=== PATIENT | female | born 1985 | race Caucasian/White ===

== ENCOUNTER → 2021-03-20 13:34 | Outpatient (CLI) | payer OTHER, SELFPAY ==
[2021-03-20 13:57] LABS: Basophils # 0.1 K/mm3 (0-0.2); Basophils % 0.4 % (0.1-2.0); Eosinophils # 0.3 K/mm3 (0.0-0.4); Eosinophils % 2.6 % (0.1-12.0); Hematocrit 45.6 % (37.0-47.0); Hemoglobin 14.8 g/dL (12.2-16.2); Lymphocytes # 3.3 K/mm3 (0.7-4.5); Lymphocytes % 27.4 % (10-50); Mean Corpuscular HGB Conc 32.4 g/dL (31.8-35.4); Mean Corpuscular Hemoglobin 29.9 pg (27.0-31.2); Mean Corpuscular Volume 92.2 fl (81-99); Mean Platelet Volume 8.3 fl (7.4-10.4); Monocytes # 0.7 K/mm3 (0.1-1.0); Monocytes % 5.4 % (1.7-9.3); Neutrophils # 7.8 K/mm3 (1.8-7.8); Neutrophils % 64.3 % (37.0-80.0); Platelet Count 342 K/mm3 (142-424); Red Blood Count 4.94 M/mm3 (4.20-5.40); Red Cell Distribution Width 12.8 % (11.5-17.5); White Blood Count 12.2 K/mm3 (4.8-10.8)
[2021-03-20 13:59] LABS: Alanine Aminotransferase 14 U/L (12-78); Albumin Level 5.1 g/dl (3.5-5.0); Albumin/Globulin Ratio 1.6 (1.1-1.8); Alkaline Phosphatase 75 U/L (38-126); Anion Gap 13.8 mEq/L (5-15); Aspartate Amino Transferase 21 U/L (14-36); Bilirubin,Total 0.4 mg/dl (0.2-1.3); Blood Urea Nitrogen 6 mg/dl (7-17); Calcium 10.5 mg/dl (8.4-10.2); Carbon Dioxide 25 mmol/L (22.0-30.0); Chloride 107 mmol/L (98-107); Chol/HDL Ratio 5.2 (1-3.5); Cholesterol 243 mg/dl (140-200); Estimated Glomerular Filt Rate 114 ml/min (>60); GFR (African American) 138 ML/MIN (>60); Globulin 3.1 g/dL (1.3-3.2); Glucose 63 mg/dl (74-100); HDL Cholesterol 47 mg/dl (40-60); Iron 85 ug/dL (37-170); Potassium 3.8 mmoL/L (3.5-5.1); Sodium 142 mmol/L (136-145); Total Protein,Serum 8.2 g/dl (6.3-8.2); Triglycerides 90 mg/dl (30-150); VLDL Cholesterol 18 mg/dL (0-40)
[2021-03-20 14:16] LABS: 25-OH Vitamin D, Total 19.6 ng/mL (30-100)
[2021-03-20 14:17] LABS: T4 (Thyroxine) 9.9 ug/dl (5.53-11.0)
[2021-03-20 14:30] LABS: Thyroid Stimulating Hormone 1.22 uIU/mL (0.465-4.68)
[2021-03-20 14:50] LABS: Vitamin B12 492 pg/mL (239-931)
== END ==
PROVIDERS: Visit Provider Family Medicine
DX: L65.9 Nonscarring hair loss, unspecified (principal); E55.9 Vitamin D deficiency, unspecified; Z79.899 Other long term (current) drug therapy; R53.83 Other fatigue
CPT/HCPCS: 80053; 80061; 82306; 82607; 83540; 84436; 84443; 85025

== ENCOUNTER → 2021-04-03 10:39 | Outpatient (CLI) | payer OTHER, SELFPAY ==
--- NOTE | 2021-04-03 10:48 | XR_ITS ---
PROCEDURE: XR CERVICAL SPINE 3V CLINICAL INDICATION: Back Pain Neck stiffness COMPARISON: No exams were available for comparison FINDINGS: Normal Alignment No fracture or dislocation. No lytic or blastic change. No significant degenerative change. The disc spaces are preserved. No evidence of cervical rib. IMPRESSION: Negative cervical spine Dictated by: Channing Monroe MD 04/03/2021 11:48 Channing Monroe MD in [place] 04/03/2021 11:48
--- NOTE | 2021-04-03 10:48 | XR_ITS ---
PROCEDURE: XR LUMBAR SPINE 2-3V CLINICAL INDICATION: Back Pain COMPARISON: No exams were available for comparison FINDINGS: There is normal alignment. No acute fracture or dislocation is evident. The disc spaces are well preserved. There is anterior angulation of the coccyx which could be developmental or posttraumatic. Bilateral tubal ligation clips are present. No lytic or blastic changes. IMPRESSION: Negative lumbar spine. Anterior angulation of the coccyx. Dictated by: Channing Monroe MD 04/03/2021 11:47 Channing Monroe MD in [place] 04/03/2021 11:47
== END ==
PROVIDERS: PCP Family Medicine; Visit Provider Family Medicine
DX: M41.9 Scoliosis, unspecified (principal)
CPT/HCPCS: 72040; 72100

== ENCOUNTER → 2022-03-01 08:50 | Outpatient (CLI) | payer OTHER, SELFPAY ==
[2022-03-01 17:35] LABS: MANUAL DIFFERENTIAL MANUAL DIFFERENTIAL (MANUAL DIFF)
[2022-03-01 17:43] LABS: Basophils # 0.1 K/mm3 (0-0.2); Basophils % 1.2 % (0.1-2.0); Eosinophils # 0.4 K/mm3 (0.0-0.4); Eosinophils % 4.8 % (0.1-12.0); Hematocrit 39.4 % (37.0-47.0); Hemoglobin 12.9 g/dL (12.2-16.2); Lymphocytes # 2.6 K/mm3 (0.7-4.5); Lymphocytes % 35.5 % (10-50); Mean Corpuscular HGB Conc 32.7 g/dL (31.8-35.4); Mean Corpuscular Hemoglobin 30.3 pg (27.0-31.2); Mean Corpuscular Volume 92.8 fl (81-99); Mean Platelet Volume 8.7 fl (7.4-10.4); Monocytes # 0.4 K/mm3 (0.1-1.0); Monocytes % 5.2 % (1.7-9.3); Neutrophils # 3.9 K/mm3 (1.8-7.8); Neutrophils % 53.4 % (37.0-80.0); Platelet Count 403 K/mm3 (142-424); Red Blood Count 4.24 M/mm3 (4.20-5.40); Red Cell Distribution Width 13.6 % (11.5-17.5); White Blood Count 7.2 K/mm3 (4.8-10.8)
[2022-03-01 18:25] LABS: Eosinophils % 1 % (0-3); Hypochromasia 1+; Lymphocytes % 22 % (10-50); Monocytes % 15 % (2-9); Neutrophils % 62 % (42-76); Platelet Estimate Normal; Total Cells Counted 100
== END ==
PROVIDERS: PCP Family Medicine; Visit Provider Family Medicine
DX: R23.8 Other skin changes (principal)
CPT/HCPCS: 85007; 85014; 85018; 85048; 85049

== ENCOUNTER → 2023-08-06 14:36 | Outpatient (CLI) | payer OTHER, SELFPAY ==
--- NOTE | 2023-08-06 14:37 | US_ITS ---
FINAL REPORT TECHNIQUE: Sonographic images of the thyroid gland were obtained in the longitudinal and transverse planes. CLINICAL HISTORY: thyroid enlargement COMPARISON: None FINDINGS: The right lobe measures 5.4 x 2 x 2.3 cm. The right lobe is homogeneous. There are 2 nodules in the right lobe of the thyroid gland. The upper nodule is a 7 mm nodule, hypoechoic, a TI-RADS category 4 nodule. The lower pole nodule is a 6 mm nodule, hypoechoic, a TI-RADS category 4 nodule. The left lobe measures 5.2 x 1.6 x 2 cm. The left lobe is homogeneous. There are no cystic or solid nodules. The isthmus measures 2.3 mm. This is normal. IMPRESSION: 2 TIRADS category 4 nodules in the right lobe. Based on size, there are no current recommendations regarding follow up. Thyromegaly. Reviewed, Interpreted and Dictated by Kristy Abreu MD Transcribed by Roseanna Byrne Authenticated and [facility]
== END ==
PROVIDERS: PCP Family Medicine; Visit Provider Nurse Practitioner
DX: E04.9 Nontoxic goiter, unspecified (principal)
CPT/HCPCS: 76536

== ENCOUNTER → 2023-08-18 09:53 | Outpatient (CLI) | payer OTHER, SELFPAY ==
[2023-08-18 19:40] LABS: Free T4 (Free Thyroxine) 1.42 ng/dl (0.78-2.19)
[2023-08-18 19:54] LABS: Thyroid Stimulating Hormone 0.42 uIU/mL (0.465-4.68)
[2023-08-20 13:20] LABS: Thyroid Peroxidase Antibodies <9 IU/mL (0-34)
== END ==
PROVIDERS: PCP Family Medicine; Visit Provider Family Medicine
DX: E04.1 Nontoxic single thyroid nodule (principal)
CPT/HCPCS: 84439; 84443; 86376

== ENCOUNTER 2023-11-13 15:52 | Outpatient (CLI) | payer OTHER, SELFPAY ==
[2023-11-13 18:48] LABS: Influenza A, PCR Not Detected (NotDetected); Influenza B, PCR Not Detected (NotDetected)
[2023-11-13 20:24] LABS: Coronavirus 19, PCR Detected (NotDetected)
== END 2023-11-13 23:59 ==
LOC: LAB.DROPOF 11-14 11:09
PROVIDERS: PCP Nurse Practitioner; Visit Provider Nurse Practitioner
DX: J06.9 Acute upper respiratory infection, unspecified (principal); U07.1 COVID-19
CPT/HCPCS: 87636

== ENCOUNTER → 2023-11-26 13:09 | Outpatient (POV) | payer OTHER, SELFPAY ==
--- NOTE | 2023-11-26 13:24 | EXP.PAIN.OV ---
HPI Data of Consult Patient: new to practice Consult date: 11/26/23 Requesting Physician: Shraddha Loyola APRN Primary Care Provider: Tuan Hernández MD Consult Narrative History of present illness: Ms. Sandhu is a 38 year old female who presents today as a new patient. She is a referral from [facility]. Today she rates her pain an 8 out of 10. Patient states her pain is all in and around her bilateral jaws and ears. Patient states this is been going on since last year around April. Patient states it is a popping and pressure sensation that is worse with talking or chewing or even opening her mouth. Patient has tried [id number] Tylenol and ibuprofen along with heat and ice with minimal relief. Patient has been seen by ENT and checked out her hearing with no acute findings. Patient is interested in any help we may be able to provide. Patient is currently managed with alprazolam 1 mg daily from her PCP. Her Sharif has been reviewed and is appropriate. CC: Shraddha Loyola APRN [facility] Disclaimer: The information contained in this section may have been updated after the patient was seen, as this information can be updated by other users. Medical History (Updated 11/26/23 @ 13:58 by Shraddha Loyola APRN) Goiter Hoarseness Low back pain Migraine Thyroid enlargement Thyroid nodule TMJ (dislocation of temporomandibular joint) Social History Smoking Status: Current every day smoker alcohol intake: never substance use type: denies use current occupational status: unemployed and disabled Travel in the last 8 weeks: None household members: significant other housing: house Review of Systems Review of Systems Review of systems:: pertinent systems reviewed and negative unless documented below Review of systems (narrative): Review of Systems: General: No recent weight changes, no fever, no sleep disturbances Respiratory: No cough, no shortness of air, no recurring pulmonary infections Cardiovascular/peripheral vascular: No chest pain, no palpitations, no edema, no shortness of breath Gastrointestinal: No new onset incontinence, normal bowel movements reported Genitourinary: No new onset incontinence Musculoskeletal: Bilateral ear/jaw pain/popping, TMJ dysfunction Psychiatric: [Normal mood/affect] Neurological: [Denies weakness in extremities], [denies balance issues] Meds Home Medications and Allergies Home Medications Medication Instructions Recorded Confirmed Type albuterol sulfate 90 mcg/actuation 2 puff inhalation QID PRN 04/04/23 11/17/23 Rx aerosol inhaler shortness of breath or wheezing #8.5 grams fluticasone propionate 50 1 spray intranasal DAILY #16 grams 07/29/23 11/17/23 Rx mcg/actuation nasal spray,suspension topiramate 25 mg tablet (Topamax) See Rx Instructions .Route 08/18/23 11/17/23 Rx .COMPLEX #60 tabs ubrogepant 100 mg tablet (Ubrelvy) 100 mg PO ONCE PRN migraine 08/18/23 11/17/23 Rx headache #10 tabs omeprazole 40 mg capsule,delayed 40 mg PO DAILY #30 caps 09/03/23 11/17/23 Rx release buspirone 15 mg tablet See Rx Instructions .Route 09/25/23 11/17/23 Rx .COMPLEX #90 tabs quetiapine 25 mg tablet See Rx Instructions .Route 09/25/23 11/17/23 Rx .COMPLEX #60 tabs Imitrex 20 mg/actuation nasal See Rx Instructions .Route 10/15/23 11/17/23 Rx spray (sumatriptan) .COMPLEX #6 ea diclofenac sodium 75 mg See Rx Instructions .Route 10/24/23 11/17/23 Rx tablet,delayed release .COMPLEX #60 tabs alprazolam 1 mg tablet 1 mg PO HS PRN anxiety #30 tabs 10/27/23 11/17/23 Rx ugfopmsasxlhmcq-rjkgmoibdmcpjrj-AO 5 ml PO Q4-6H PRN cold symptoms 11/13/23 11/13/23 Rx 2 mg-30 mg-10 mg/5 mL oral syrup #240 mL (Bromfed DM) cefdinir 300 mg capsule 300 mg PO BID #20 caps 11/13/23 11/13/23 Rx cetirizine 10 mg tablet 10 mg PO DAILY #30 tabs 11/13/23 11/13/23 Rx fluconazole 150 mg tablet 150 mg PO WEEKLY #2 tabs 11/13/23 11/13/23 Rx methylprednisolone 4 mg tablets in See Rx Instructions PO PER PKG DIR 11/13/23 11/13/23 Rx a dose pack #21 tabs montelukast 10 mg tablet 10 mg PO DAILY #30 tabs 11/13/23 11/13/23 Rx moxifloxacin 0.5 % eye drops 1 drp ophthalmic (eye) TID 7 days 11/13/23 11/13/23 Rx #3 mL nystatin 100,000 unit/mL oral 4 ml PO QID 10 days #160 mL 11/13/23 11/13/23 Rx suspension molnupiravir 200 mg capsule (EUA) 800 mg PO Q12H 5 days #40 caps 11/14/23 11/14/23 Rx (Lagevrio) New Prescriptions to Start Prescriptions: Allergies Allergy/AdvReac Type Severity Reaction Status Date / Time hydrocodone AdvReac Unknown Verified 11/17/23 09:09 morphine AdvReac Unknown Verified 11/17/23 09:09 sulfamethoxazole AdvReac Verified 11/17/23 09:09 [From Bactrim] trimethoprim [From Bactrim] AdvReac Verified 11/17/23 09:09 Objective Narrative: Physical Exam: General: Alert and oriented x3, no acute distress, pleasant and cooperative Lungs: Respirations even and unlabored, symmetrical chest expansion Eyes: PERRL Musculoskeletal: Flexion and extension of lumbar [spine] within normal limits Neurological: Speech clear, no gross sensory deficit Assessment and Plan *Assessment and plan (1) TMJ dysfunction: Status: Acute Category: Medical Code(s): M26.609 - Unspecified temporomandibular joint disorder, unspecified side (2) Jaw pain: Status: Acute Category: Medical Code(s): R68.84 - Jaw pain (3) Ear pain: Status: Acute Qualifiers: Laterality: bilateral Qualified Code(s): H92.03 - Otalgia, bilateral Category: Medical Code(s): H92.09 - Otalgia, unspecified ear Plan Patient is experiencing worsening pain in and around her bilateral jaws and ears related to TMJ dysfunction. Patient has seen ENT specialist with no acute findings. I have discussed with the patient that she may benefit from TMJ joint injections. Risk and benefits were discussed with the patient and she would like to proceed forward with this plan of care. Patient will be scheduled for bilateral TMJ joint injections. Patient has been instructed to contact the clinic with any concerns before the next appointment. Dr. Sanchez has reviewed this note and agrees with this plan of care. This note was dictated using voice recognition software and make contain errors or omissions.
[2023-11-26 14:11] VITALS: BP 137/83; PULSE 78; RESP 18; O2SAT 100
== END ==
LOC: SC.PAIN 13:10
PROVIDERS: PCP Family Medicine; Visit Provider Nurse Practitioner Family
DX: M26.603 Bilateral temporomandibular joint disorder, unspecified (principal); R68.84 Jaw pain; H92.03 Otalgia, bilateral
CPT/HCPCS: 99202; G0463

== ENCOUNTER 2023-12-19 09:50 | Day surgery (SDC) | payer OTHER, SELFPAY ==
[2023-12-19 10:09] VITALS: BP 137/84; PULSE 83; RESP 18; O2SAT 100; BMI 19.8
[2023-12-19] MEDS: methylPREDNISolone ACETATE 80MG/ML VIAL 80 MG (11:05)
[2023-12-19] MEDS: LIDOCAINE 1% 5ML PF VIAL 5 ML (11:05)
[2023-12-19 11:06] VITALS: BP 111/71; PULSE 75; RESP 18; O2SAT 98
[2023-12-19 11:15] VITALS: BP 115/82; PULSE 66; RESP 18; O2SAT 100
--- NOTE | 2023-12-19 14:09 | P.PCN_ITS ---
Procedure Date: 12/19/23 Time: 14:10 Anesthesiologist:: Latrell Sanchez MD Complications:: None Pre-procedure Diagnosis:: Temporomandibular joint dysfunction with bilateral jaw pain Post-procedure Diagnosis:: Same Indications for Procedure:: This patient is a pleasant 38-year-old white female who is now developed bilateral temporomandibular joint dysfunction with bilateral jaw pain. This was discovered by her ENT. She wears dentures so she does not grind her teeth at night. However upon chewing she does have increasing pain on both sides left greater than right. We will do bilateral temporomandibular joint injections today to see if this will help with her pain symptoms. Procedure Details:: Bilateral temporomandibular joint injection Informed consent was obtained risk and benefits of the procedure were explained to the patient. Patient was taken the procedure room. The area anterior to the tragus was prepped using alcohol preps. A 25-gauge needle was inserted on each side into the temporomandibular joint. We injected 3 mL lidocaine 1% and Depo- Medrol 40 mg into each temporomandibular joint. Patient tolerated procedure well with no complications. Plan and Disposition:: Will follow-up with this patient in 2 weeks. Will reevaluate symptoms at that time
== END 2023-12-19 11:15 | disposition home or self-care (01) ==
LOC: SC.PAINP 09:50
PROVIDERS: PCP Family Medicine; Visit Provider Anesthesiology
DX: M26.603 Bilateral temporomandibular joint disorder, unspecified (principal); R68.84 Jaw pain
CPT/HCPCS: 20605; J1040

== ENCOUNTER → 2024-01-02 08:54 | Outpatient (POV) | payer OTHER, SELFPAY ==
[2024-01-02 09:20] VITALS: BP 100/64; PULSE 71; RESP 18; O2SAT 99; BMI 20.9
--- NOTE | 2024-01-02 09:29 | EXP.PAIN.SOA ---
[facility] Pain Management SOAP Note Subjective:: Patient is a pleasant 38-year-old female who presents today for follow-up of TMJ joint injection bilaterally on 12/19/2023. Currently treating the patient for TMJ dysfunction. Today she rates her pain a 6 out of 10. Patient denies any new trauma or injury. She states that she did have 100% relief following this injection and during that time was able to increase her activity with decreased overall pain and was more functional. Patient does state that after the 2 days it did slowly start to come back with the ear popping and pressure sensations that did eventually go more into and around her jaw. Today she states she is back at her baseline. Patient states the pain is very bothersome with an aching sensation that does affect her ability to perform activities of daily living such as cooking and cleaning. Patient states the pain is fairly constant. Patient is interested in repeating her prior injections. Patient is managed with alprazolam 1 mg daily from her PCP. Her Sharif has been reviewed and is appropriate. Review of Systems: General: No recent weight changes, no fever, no sleep disturbances Respiratory: No cough, no shortness of air, no recurring pulmonary infections Cardiovascular/peripheral vascular: No chest pain, no palpitations, no edema, no shortness of breath Gastrointestinal: No new onset incontinence, normal bowel movements reported Genitourinary: No new onset incontinence Musculoskeletal: Bilateral ear pain/jaw pain/TMJ dysfunction Psychiatric: [Normal mood/affect] Neurological: [Denies weakness in extremities], [denies balance issues] Objective:: Physical Exam: General: Alert and oriented x3, no acute distress, pleasant and cooperative Lungs: Respirations even and unlabored, symmetrical chest expansion Eyes: PERRL Musculoskeletal: Flexion and extension of lumbar spine within normal limits Neurological: Speech clear, no gross sensory deficit Assessment:: TMJ joint dysfunction with bilateral lateral jaw pain Plan:: Patient had 100% improvement with her last TMJ joint injection. Patient is back to having worsening pain, pressure and popping sensations at today's visit. I have discussed with patient that she may benefit from repeat TMJ joint injection. Risk and benefits were discussed with the patient and she would like to proceed forward with this plan of care. We will schedule the patient for bilateral TMJ joint injections. Patient has been instructed to contact the clinic with any concerns before the next appointment. Dr. Sanchez has reviewed this note and agrees with this plan of care. This note was dictated using voice recognition software and make contain errors or omissions. [facility] Disclaimer: The information contained in this section may have been updated after the patient was seen, as this information can be updated by other users. Medical History Goiter Hoarseness Low back pain Migraine Thyroid enlargement Thyroid nodule TMJ (dislocation of temporomandibular joint) Family History Other Unknown family medical history Social History Smoking Status: Current every day smoker alcohol intake: never substance use type: denies use current occupational status: employed Travel in the last 8 weeks: None household members: significant other housing: house
== END ==
LOC: SC.PAIN 08:55
PROVIDERS: PCP Family Medicine; Visit Provider Nurse Practitioner Family
DX: M26.603 Bilateral temporomandibular joint disorder, unspecified (principal); R68.84 Jaw pain
CPT/HCPCS: 99212; G0463

== ENCOUNTER 2024-01-16 13:41 | Day surgery (SDC) | payer OTHER, SELFPAY ==
[2024-01-16 13:58] VITALS: BP 108/70; PULSE 92; RESP 20; O2SAT 100; BMI 20.2
[2024-01-16 14:13] VITALS: BP 111/74; PULSE 81; RESP 18; O2SAT 97
[2024-01-16] MEDS: LIDOCAINE 1% 5ML PF VIAL 10 ML (14:13)
[2024-01-16 14:17] VITALS: BP 111/74; PULSE 81; RESP 18; O2SAT 97
[2024-01-16 14:25] VITALS: BP 109/66; PULSE 81; RESP 20
--- NOTE | 2024-01-16 15:11 | P.PCN_ITS ---
Procedure Date: 01/16/24 Time: 15:11 Anesthesiologist:: Latrell Sanchez MD Complications:: None Pre-procedure Diagnosis:: Temporomandibular joint dysfunction Post-procedure Diagnosis:: same Indications for Procedure:: Patient is a pleasant 38-year-old white female who we are treating for temporo mandibular joint dysfunction. She had bilateral temporomandibular joint injections and did very well. She was 100% better for several days. Pain is starting to return. We will do repeat temporomandibular joint injections today. Patient was able to eat when she had pain relief. Procedure Details:: Temporomandibular joint injection bilaterally Informed consent was obtained risk and benefits of the procedure were explained to the patient. Patient was taken to the procedure room. The area anterior to both tragus was prepped using alcohol prep. A 25-gauge needle was inserted first on the left and then on the right to inject 3 mL bupivacaine 0.25% and Depo-Medrol 40 mg into each temporomandibular joint. Patient tolerated the procedure well with no complications. We did a total of 80 mg Depo-Medrol for both temporomandibular joints. Plan and Disposition:: Will follow-up with this patient in 2 weeks. Will reevaluate symptoms at that time. Again if this patient needs repeat injections in the future we will plan on doing this in approximately 6 to 8 weeks.
== END 2024-01-16 14:25 | disposition home or self-care (01) ==
LOC: SC.PAINP 13:42
PROVIDERS: PCP Family Medicine; Visit Provider Anesthesiology
DX: M26.603 Bilateral temporomandibular joint disorder, unspecified (principal)
CPT/HCPCS: 20605; J1030

== ENCOUNTER 2024-01-21 14:50 | Outpatient (CLI) | payer OTHER, SELFPAY ==
--- NOTE | 2024-01-21 14:51 | US_ITS ---
FINAL REPORT CLINICAL HISTORY: 6 month repeat COMPARISON: 08/06/2023 FINDINGS: THYROID ULTRASOUND: The right lobe of the thyroid gland measures 5.25 x 2 x 2.47 cm in size. There are 2 nodules in the right thyroid gland, also seen on the prior examination of July 2023. One of the nodules is 6 x 5 x 3 mm in size, isoechoic with a hypoechoic rim, a TI-RADS category 3 nodule. The second nodule measures 7 x 6 x 4 mm in size, is solid, hypoechoic, a TI-RADS category 4 nodule. There is no significant change in the size or appearance of these nodules when compared to the prior exam of July. The left lobe of the thyroid measures 5.4 x 1.9 x 2.2 cm in size. No focal nodule or mass is identified. The isthmus of the thyroid is 2.2 mm in thickness, without evidence of focal nodule or mass. IMPRESSION: 2 thyroid nodules are once again identified, not significantly changed in size or appearance since the prior exam of July 2023. Once again, based on size, there are no current recommendations regarding follow-up according to TI-RADS categorization. Reviewed, Interpreted and Dictated by Bob Adame III, MD Transcribed by Roseanna Byrne Authenticated and . [facility]
== END 2024-01-21 23:59 ==
LOC: RAD 14:51
PROVIDERS: PCP Family Medicine; Visit Provider Otolaryngology
DX: E04.1 Nontoxic single thyroid nodule (principal); E04.9 Nontoxic goiter, unspecified
CPT/HCPCS: 76536

== ENCOUNTER 2024-01-29 09:49 | Outpatient (POV) | payer OTHER, SELFPAY ==
[2024-01-29 09:55] VITALS: BP 141/95; PULSE 113; RESP 20; BMI 19.5
--- NOTE | 2024-01-29 10:53 | A.OFFVIS_ITS ---
[facility] Pain Management SOAP Note Subjective:: Patient is a pleasant 38-year-old female who presents today for follow-up of her second TMJ joint injection on 01/16/2024. She does state her pain today is 8 out of 10. She denies any new injury or trauma. She does state that this injection provided significant relief of more than 50% in the 100% relief of the ear and jaw popping for approximately 8 days. Patient states during that time she was able to increase her activity and was able to enjoy eating without the pain and popping sensation. Today she states she is back to her baseline and states that she continues to have trouble with talking or eating due to the worsening pain. She states she feels like she has trouble gaining weight due to this. Patient does also state that she is being checked for possible thyroid issues to help explain some of her symptoms as well as hair loss. Patient is interested in any help we may be able to provide as her pain is interfering with her ability to perform activities of daily living such as cooking and cleaning. Patient is prescribed alprazolam from an outside provider. Her Sharif has been reviewed and is appropriate. Review of Systems: General: No recent weight changes, no fever, no sleep disturbances Respiratory: No cough, no shortness of air, no recurring pulmonary infections Cardiovascular/peripheral vascular: No chest pain, no palpitations, no edema, no shortness of breath Gastrointestinal: No new onset incontinence, normal bowel movements reported Genitourinary: No new onset incontinence Musculoskeletal: Jaw/ear popping/facial pain Psychiatric: [Normal mood/affect] Neurological: [Denies weakness in extremities], [denies balance issues] Objective:: Physical Exam: General: Alert and oriented x3, no acute distress, pleasant and cooperative Lungs: Respirations even and unlabored, symmetrical chest expansion Eyes: PERRL Musculoskeletal: Flexion and extension of cervical spine within normal limits Neurological: Speech clear, no gross sensory deficit Assessment:: TMJ joint dysfunction with bilateral jaw pain Plan:: Patient continues to experience significant pain with worsening popping of her jaw and ears. Patient does have worsening pain more prominent on the right in comparison to the left. I have discussed with the patient that she may benefit from a repeat injection. Risk and benefits were discussed with patient and she would like to proceed forward with this plan of care. I have counseled the patient if the steroid injection still does not give long-term relief we will give a more substantial break between the injections. I will order the patient a compounded cream. Patient has been counseled not to apply this close to any mucous membranes and use only a small amount in and around her bilateral ears. Patient acknowledges understanding of this plan of care. She will be scheduled for bilateral TMJ joint injections. Patient has been instructed to contact the clinic with any concerns before the next appointment. Dr. Sanchez has reviewed this note and agrees with this plan of care. This note was dictated using voice recognition software and make contain errors or omissions. [facility] Disclaimer: The information contained in this section may have been updated after the patient was seen, as this information can be updated by other users. Medical History Hoarseness TMJ (dislocation of temporomandibular joint) Goiter Thyroid nodule Low back pain Thyroid enlargement Migraine Family History Other Unknown family medical history Social History Smoking Status: Current every day smoker alcohol intake: never substance use type: denies use current occupational status: other Travel in the last 8 weeks: None household members: significant other housing: house
[2024-01-29 11:52] LABS: Free T4 (Free Thyroxine) 1.18 ng/dl (0.78-2.19)
[2024-01-29 12:17] LABS: Thyroid Stimulating Hormone 0.76 uIU/mL (0.465-4.68)
== END 2024-01-29 23:59 ==
PROVIDERS: Nurse Practitioner; PCP Family Medicine; Visit Provider Nurse Practitioner Family
DX: M26.609 Unspecified temporomandibular joint disorder, unspecified side (principal); R68.84 Jaw pain; E04.1 Nontoxic single thyroid nodule
CPT/HCPCS: 36415; 84439; 84443; 99212; G0463

== ENCOUNTER 2024-02-20 13:15 | Day surgery (SDC) | payer OTHER, SELFPAY ==
[2024-02-20 13:25] VITALS: BP 116/67; PULSE 83; RESP 18; TEMP 36.4; O2SAT 96; BMI 20.3
[2024-02-20] MEDS: LIDOCAINE 1% 5ML PF VIAL 5 ML (13:53)
[2024-02-20] MEDS: methylPREDNISolone ACETATE 80MG/ML VIAL 80 MG (13:53)
[2024-02-20 13:54] VITALS: BP 105/73; PULSE 84; RESP 18; O2SAT 97
[2024-02-20 13:55] VITALS: BP 105/73; PULSE 84; RESP 18; O2SAT 98
[2024-02-20 14:15] VITALS: BP 113/64; PULSE 86; RESP 18; O2SAT 100
--- NOTE | 2024-02-20 15:15 | P.PCN_ITS ---
Procedure Date: 02/20/24 Time: 15:15 Anesthesiologist:: Latrell Sanchez MD Complications:: None Pre-procedure Diagnosis:: Bilateral temporomandibular joint dysfunction with bilateral jaw pain Post-procedure Diagnosis:: Same Indications for Procedure:: Patient is a pleasant 38-year-old white female who we have been treating for bilateral jaw pain with bilateral temporomandibular joint dysfunction. She has received bilateral temporomandibular joint injections with good relief of her pain symptoms. Her pain is starting to return now. Will do repeat bilateral temporomandibular joint injections today. Procedure Details:: Bilateral TMJ injection Informed consent was obtained risk and benefits of the procedure were explained to the patient. Patient was taken to the procedure room she was placed supine on the procedure table. A alcohol prep was used anterior to the tragus on both sides. A 25-gauge needle was inserted first on the left side and then on the right side and we injected 3 mL bupivacaine 0.25% and Depo-Medrol 40 mg into e ach temporomandibular joint. The patient tolerated the procedure well with no complications. Plan and Disposition:: Will follow-up with this patient in 2 weeks. Will reevaluate symptoms at that time.
== END 2024-02-20 14:16 | disposition home or self-care (01) ==
LOC: SC.PAINP 13:16
PROVIDERS: PCP Family Medicine; Visit Provider Anesthesiology
DX: M26.603 Bilateral temporomandibular joint disorder, unspecified (principal); R68.84 Jaw pain
CPT/HCPCS: 20605; J1010

== ENCOUNTER 2024-03-08 11:12 | Outpatient (POV) | payer OTHER, SELFPAY ==
[2024-03-08 11:34] VITALS: BP 113/78; PULSE 91; RESP 18; TEMP 36.7; O2SAT 98; BMI 19.8
--- NOTE | 2024-03-08 12:22 | A.OFFVIS_ITS ---
[facility] Pain Management SOAP Note Subjective:: Patient is a pleasant 38-year-old female who presents today for follow-up of her bilateral temporomandibular joint injections on 02/20/2024. Today she rates her pain a 6 out of 10. Patient does state that these injections did last longer than the prior ones. She states that she had about 90% relief and lasted up until the other day where she ate some steak for the first time in a long time. Patient does state that it was only until towards the end of the meal that she had an episode of the popping. Patient states that after that it went away however on Friday of last week she did have soft pizza and this did seem to aggravate her overall symptoms. Patient is prescribed alprazolam from an outside provider. Patient does state that she is still using the compounded cream around her TMJ area with some improvement. Her Sharif has been reviewed and is appropriate. Review of Systems: General: No recent weight changes, no fever, no sleep disturbances Respiratory: No cough, no shortness of air, no recurring pulmonary infections Cardiovascular/peripheral vascular: No chest pain, no palpitations, no edema, no shortness of breath Gastrointestinal: No new onset incontinence, normal bowel movements reported Genitourinary: No new onset incontinence Musculoskeletal: Bilateral jaw pain, ear pain, TMJ dysfunction Psychiatric: [Normal mood/affect] Neurological: [Denies weakness in extremities], [denies balance issues] Objective:: Physical Exam: General: Alert and oriented x3, no acute distress, pleasant and cooperative Lungs: Respirations even and unlabored, symmetrical chest expansion Eyes: PERRL Musculoskeletal: Flexion and extension of cervical [spine] within normal limits Neurological: Speech clear, no gross sensory deficit Assessment:: TMJ joint dysfunction with bilateral jaw pain, bilateral ear pain Plan:: Patient has had 3 rounds of TMJ joint injections that have provided significant relief however they do vary in how long they last. I have reviewed with the patient due to her risk of osteoporosis we will hold off scheduling her for any repeat injections at this time. Patient will return to clinic in 1 month for reevaluation of symptoms and plan of care. Patient has been instructed to contact the clinic with any concerns before the next appointment. Dr. Sanchez has reviewed this note and agrees with this plan of care. This note was dictated using voice recognition software and make contain errors or omissions. [facility] Disclaimer: The information contained in this section may have been updated after the patient was seen, as this information can be updated by other users. Medical History Hoarseness TMJ (dislocation of temporomandibular joint) Goiter Thyroid nodule Low back pain Thyroid enlargement Migraine Family History Other Unknown family medical history Social History Smoking Status: Current every day smoker alcohol intake: never substance use type: denies use current occupational status: other Travel in the last 8 weeks: None household members: significant other housing: house
== END 2024-03-08 23:59 | disposition home or self-care (01) ==
LOC: SC.PAIN 11:12
PROVIDERS: PCP Family Medicine; Visit Provider Nurse Practitioner Family
DX: M26.603 Bilateral temporomandibular joint disorder, unspecified (principal); R68.84 Jaw pain; H92.03 Otalgia, bilateral
CPT/HCPCS: 99212; G0463

== ENCOUNTER 2024-04-01 11:26 | Outpatient (POV) | payer OTHER, SELFPAY ==
[2024-04-01 11:35] VITALS: BP 119/77; PULSE 91; RESP 16; O2SAT 100
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
== END 2024-04-01 23:59 | disposition home or self-care (01) ==
PROVIDERS: PCP Family Medicine; Visit Provider Nurse Practitioner Family
DX: M26.609 Unspecified temporomandibular joint disorder, unspecified side (principal); R68.84 Jaw pain; H92.09 Otalgia, unspecified ear; M54.50 Low back pain, unspecified; M25.552 Pain in left hip; M70.62 Trochanteric bursitis, left hip; M25.562 Pain in left knee
CPT/HCPCS: 99212; G0463

== ENCOUNTER 2024-04-17 10:50 | Outpatient (CLI) | payer OTHER, SELFPAY ==
--- NOTE | 2024-04-17 | MR_ITS ---
FINAL REPORT CLINICAL HISTORY: r low back and hips with some radiating symptoms into her legs COMPARISON: None FINDINGS: Multiplanar MR imaging of the lumbar spine was performed without contrast. On the sagittal T2-weighted images, mild disc degeneration is seen at several levels. There is mild retrolisthesis of L3 on L4. There is no evidence of fracture. No bony mass is identified. The conus has an unremarkable appearance. L1-2: There is no significant canal stenosis or neural foraminal narrowing. L2-3: An annular bulge is present. There is no significant canal stenosis or neural foraminal narrowing. L3-4: An annular bulge is present. There is no significant canal stenosis or neural foraminal narrowing. L4-5: An annular bulge is present. Small central disc protrusion. Left foraminal disc protrusion. Mild left neuroforaminal narrowing. L5-S1: Mild facet arthropathy. There is no significant canal stenosis or neural foraminal narrowing. IMPRESSION: Left foraminal disc protrusion at L4-5. Reviewed, Interpreted and Dictated by Bob Adame III, MD Transcribed by Isatu Beatty Authenticated and [facility]
== END 2024-04-17 23:59 | disposition home or self-care (01) ==
LOC: RAD 10:54
PROVIDERS: PCP Nurse Practitioner Family; Visit Provider Nurse Practitioner Family
DX: M54.59 Other low back pain (principal)
CPT/HCPCS: 72148; 76376

== ENCOUNTER 2024-05-26 14:53 | Outpatient (POV) | payer OTHER, SELFPAY ==
[2024-05-26 15:11] VITALS: BP 139/61; PULSE 95; RESP 16; O2SAT 100; BMI 20.9
--- NOTE | 2024-05-26 16:18 | EXP.PAIN.SOA ---
[facility] Disclaimer: The information contained in this section may have been updated after the patient was seen, as this information can be updated by other users. Medical History Hoarseness TMJ (dislocation of temporomandibular joint) Goiter Thyroid nodule Low back pain Thyroid enlargement Migraine Family History Other Unknown family medical history Social History Smoking Status: Current every day smoker alcohol intake: never substance use type: denies use current occupational status: other Travel in the last 8 weeks: None household members: significant other housing: house PM Subjective & Objective Subjective Subjective:: Patient is a pleasant 39-year-old female who presents today for MRI follow-up. Today she rates her pain a 7 out of 10. She denies any new trauma or injury. Patient does states she is still having worsening pain that radiates all across her low back and has been having worsening symptoms into primarily her left leg however does states she has it into her right as well. Patient states the pain is worse with increased activity or ambulation. Patient does state it is an aching, throbbing sensation with numbness and tingling that does interfere with her ability to perform activities of daily living such as cooking and cleaning. Patient is interested in any help we may be able to provide. Patient has tried and failed conservative treatment such as oral medication, heat and ice, topicals, continued at home stretching exercise for longer than 6 weeks. Her Sharif has been reviewed and is appropriate. Patient is prescribed compounded cream from our office. Review of Systems: General: No recent weight changes, no fever, no sleep disturbances Respiratory: No cough, no shortness of air, no recurring pulmonary infections Cardiovascular/peripheral vascular: No chest pain, no palpitations, no edema, no shortness of breath Gastrointestinal: No new onset incontinence, normal bowel movements reported Genitourinary: No new onset incontinence Musculoskeletal: Low back pain, leg pain Psychiatric: [Normal mood/affect] Neurological: [Denies weakness in extremities], [denies balance issues] Pain at rest (0-10 scale): 7 Objective Objective:: Physical Exam: General: Alert and oriented x3, no acute distress, pleasant and cooperative Lungs: Respirations even and unlabored, symmetrical chest expansion Eyes: PERRL Musculoskeletal: Flexion and extension of lumbar [spine] somewhat guarded secondary to pain, positive left leg raise Neurological: Speech clear, no gross sensory deficit Has patient had previous pain injection?: No Conservative treatment options previously tried: NSAIDS Length of treatment: Longer than 6 weeks, Home exercise plan Length of treatment: Longer than 6 weeks and Prescription medications Length of treatment: Longer than 6 weeks Meds Home Medications and Allergies Home Medications Medication Instructions Recorded Confirmed Type ubrogepant 100 mg tablet (Ubrelvy) 100 mg PO ONCE PRN migraine 08/18/23 05/26/24 Rx headache #10 tabs quetiapine 25 mg tablet See Rx Instructions .Route 09/25/23 05/26/24 Rx .COMPLEX #60 tabs fluticasone propionate 50 See Rx Instructions .Route 12/24/23 05/26/24 Rx mcg/actuation nasal .COMPLEX #16 grams spray,suspension famotidine 20 mg tablet 40 mg (2 x 20 mg) PO HS gerd #100 01/21/24 05/26/24 Rx tabs cetirizine 10 mg tablet 10 mg PO DAILY #90 tabs 02/06/24 05/26/24 Rx clobetasol 0.05 % topical ointment 1 applic topical HS #60 grams 02/06/24 05/26/24 Rx (Temovate) montelukast 10 mg tablet 10 mg PO DAILY #90 tabs 02/06/24 05/26/24 Rx buspirone 15 mg tablet See Rx Instructions .Route 03/18/24 05/26/24 Rx .COMPLEX #90 tabs topiramate 25 mg tablet (Topamax) 50 mg (2 x 25 mg) PO HS headaches 03/30/24 05/26/24 Rx #60 tabs albuterol sulfate 90 mcg/actuation See Rx Instructions .Route 04/28/24 05/26/24 Rx aerosol inhaler (Ventolin HFA) .COMPLEX #18 grams alprazolam 1 mg tablet 1 mg PO HS PRN anxiety #30 tabs 04/30/24 05/26/24 Rx sumatriptan 20 mg/actuation nasal See Rx Instructions .Route 04/30/24 05/26/24 Rx spray .COMPLEX #6 ea meloxicam 15 mg tablet 15 mg PO DAILY #30 tabs 05/10/24 05/26/24 Rx omeprazole 40 mg capsule,delayed See Rx Instructions .Route 05/19/24 05/26/24 Rx release .COMPLEX #30 caps New Prescriptions to Start Prescriptions: Allergies Allergy/AdvReac Type Severity Reaction Status Date / Time hydrocodone AdvReac Unknown Verified 02/20/24 13:30 morphine AdvReac Unknown Verified 02/20/24 13:30 sulfamethoxazole AdvReac Verified 02/20/24 13:30 [From Bactrim] trimethoprim [From Bactrim] AdvReac Verified 02/20/24 13:30 Assessment and Plan *Assessment and plan (1) Degenerative disc disease, lumbar: Status: Acute Category: Medical Code(s): M51.36 - Other intervertebral disc degeneration, lumbar region (2) Lumbar radiculopathy: Status: Acute Category: Medical Code(s): M54.16 - Radiculopathy, lumbar region (3) Lumbar facet arthropathy: Status: Acute Category: Medical Code(s): M47.816 - Spondylosis without myelopathy or radiculopathy, lumbar region Plan Patient is experiencing worsening pain in her low back and legs with limited range of motion and a positive left leg raise. I did review over the patient's MRI findings that did have multilevel degenerative disc disease with facet arthropathy, multilevel disc bulges and narrowing most prominent at the L4-L5 level. I did discuss with the patient that she may benefit from a lumbar epidural steroid injection at this location. Risk and benefits were discussed with the patient and she would like to proceed forward with this plan of care. Patient has tried and failed conservative therapy including continued at home stretching exercise over the last 6 weeks. We will submit to insurance for the lumbar epidural steroid injection L4-L5 under fluoroscopy. Patient has been instructed to contact the clinic with any concerns before the next appointment. Dr. Sanchez has reviewed this note and agrees with this plan of care. This note was dictated using voice recognition software and make contain errors or omissions.
== END 2024-05-26 23:59 | disposition home or self-care (01) ==
LOC: SC.PAIN 14:54
PROVIDERS: PCP Family Medicine; Visit Provider Nurse Practitioner Family
DX: G89.29 Other chronic pain (principal); M51.36 Other intervertebral disc degeneration, lumbar region; M47.26 Other spondylosis with radiculopathy, lumbar region
CPT/HCPCS: 99212; G0463

== ENCOUNTER 2024-09-08 14:09 | Outpatient (CLI) | payer OTHER, SELFPAY ==
[2024-09-08 20:58] LABS: HIV (1&2) Antibody Rapid NONREACTIVE (NONREACTIVE)
[2024-09-10 09:15] LABS: HCV Ab Non Reactive (Non Reactive)
== END 2024-09-08 23:59 | disposition home or self-care (01) ==
LOC: LAB.DROPOF 09-09 14:09
PROVIDERS: PCP Family Medicine; Visit Provider Family Medicine
DX: Z11.59 Encounter for screening for other viral diseases (principal)
CPT/HCPCS: 86803; 87389

== ENCOUNTER 2024-11-16 18:47 | Emergency (ER) | payer OTHER, SELFPAY ==
[2024-11-16 19:18] VITALS: BP 139/82; PULSE 74; RESP 18; TEMP 36.6; O2SAT 100; BMI 20.9
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
[2024-11-16 20:19] VITALS: BP 139/82; PULSE 74; RESP 18; TEMP 36.6
== END 2024-11-16 20:26 | disposition home or self-care (01) ==
PROVIDERS: Emergency Provider Nurse Practitioner Family; PCP Family Medicine
DX: S13.4XXA Sprain of ligaments of cervical spine, initial encounter (principal); R07.89 Other chest pain; V87.7XXA Person injured in collision between other specified motor vehicles (traffic), initial encounter
CPT/HCPCS: 71046; 99213; G0381

== ENCOUNTER 2025-01-18 15:18 | Outpatient (CLI) | payer OTHER, SELFPAY ==
--- NOTE | 2025-01-18 15:19 | US_ITS ---
FINAL REPORT TECHNIQUE: Sonographic images of the thyroid were obtained. CLINICAL HISTORY: repeat in 1 year for thyroid nodule COMPARISON: 01/21/2024 FINDINGS: THYROID ULTRASOUND The right thyroid gland measures 5.7 x 1.9 x 2.4 cm. The parenchyma shows normal echogenicity. There is a 6 mm nodule in the superior right lobe of the thyroid and a 7 mm nodule in the lower right lobe of the thyroid. These nodules appear stable compared to the prior exam. The left thyroid gland measures 5.5 x 1.7 x 2.2 cm. The parenchyma shows normal echogenicity. No dominant mass is seen. IMPRESSION: Stable appearing right thyroid nodules as above. No follow-up required per TI-RADS criteria. Reviewed, Interpreted and Dictated by Shaw Ibanez MD Transcribed by Aniya Conrad Authenticated and [facility]
== END 2025-01-18 23:59 | disposition home or self-care (01) ==
LOC: RAD 15:19
PROVIDERS: PCP Family Medicine; Visit Provider Nurse Practitioner
DX: E04.1 Nontoxic single thyroid nodule (principal)
CPT/HCPCS: 76536